=== PATIENT | female | born 1965 | race Caucasian/White ===

== ENCOUNTER 2017-08-28 20:30 | Outpatient (CLI) | payer BC | END 2017-08-28 20:31 | disposition home or self-care (01) | LOC: SLEEPLAB 20:30 | PROVIDERS: ATTEND Nurse Practitioner Family | DX: G47.33 Obstructive sleep apnea (adult) (pediatric) (principal); E66.9 Obesity, unspecified; I10 Essential (primary) hypertension; R51 Headache; R06.83 Snoring; G47.10 Hypersomnia, unspecified; G47.00 Insomnia, unspecified | CPT/HCPCS: 95810 ==

== ENCOUNTER 2018-02-09 15:27 | Outpatient (CLI) | payer BC ==
--- NOTE | 2018-02-09 16:17 | RAD ---
ABDOMEN 1 VIEW: Date: 02/09/18 HISTORY: Bilateral flank pain. COMPARISON: None. FINDINGS: No abnormal calcifications projecting over the renal shadows. Right upper quadrant surgical clips. No definite ureteral calculus. Mild narrowing of facet joints. No dilated loops of large or small bowel . Phleboliths in pelvis. IMPRESSION: No acute abnormality. POS: OFF
--- NOTE | 2018-02-09 16:18 | RAD ---
LUMBAR SPINE 3 VIEWS: Date: 02/09/18 HISTORY: Back pain. FINDINGS: Degenerative changes are present. No fracture, subluxation, or bony destruction is identified. IMPRESSION: Lumbar spondylosis. POS: [place]
== END 2018-02-09 15:28 | disposition home or self-care (01) ==
LOC: RAD-FRANK 15:27
PROVIDERS: ATTEND Nurse Practitioner Family
DX: M54.5 Low back pain (principal); R10.9 Unspecified abdominal pain; M47.896 Other spondylosis, lumbar region
CPT/HCPCS: 72100; 74018

== ENCOUNTER 2018-02-18 09:20 | Outpatient (CLI) | payer BC ==
[2018-02-18] MEDS ORDERED: Iopamidol 370 76% 100 ML VIAL ONE (11:33)
== END 2018-02-18 09:21 | disposition home or self-care (01) ==
LOC: BICCT 09:20
PROVIDERS: ATTEND Nurse Practitioner Family
DX: R10.9 Unspecified abdominal pain (principal); I86.8 Varicose veins of other specified sites; K57.30 Diverticulosis of large intestine without perforation or abscess without bleeding
CPT/HCPCS: 74177

== ENCOUNTER 2018-03-15 07:43 | Outpatient (CLI) | payer BC | END 2018-03-15 07:44 | disposition home or self-care (01) | LOC: BICMRI 07:43 | PROVIDERS: ATTEND Nurse Practitioner Family | DX: M25.552 Pain in left hip (principal); M25.551 Pain in right hip; M53.9 Dorsopathy, unspecified; M70.62 Trochanteric bursitis, left hip; M67.88 Other specified disorders of synovium and tendon, other site; M47.896 Other spondylosis, lumbar region | CPT/HCPCS: 72148 ==

== ENCOUNTER 2021-07-24 11:59 | Outpatient (CLI) | payer BC | END 2021-07-24 12:00 | disposition home or self-care (01) | LOC: BICRAD 11:59 | PROVIDERS: ATTEND Nurse Practitioner Family | DX: M46.1 Sacroiliitis, not elsewhere classified (principal); M47.816 Spondylosis without myelopathy or radiculopathy, lumbar region; M47.815 Spondylosis without myelopathy or radiculopathy, thoracolumbar region | CPT/HCPCS: 72100 ==

== ENCOUNTER 2021-08-07 08:56 | Outpatient (CLI) | payer BC | END 2021-08-07 08:57 | disposition home or self-care (01) | LOC: BICMRI 08:56 | PROVIDERS: ATTEND Nurse Practitioner Family | DX: M48.061 Spinal stenosis, lumbar region without neurogenic claudication (principal); M47.816 Spondylosis without myelopathy or radiculopathy, lumbar region | CPT/HCPCS: 72148 ==

== ENCOUNTER 2022-04-01 08:51 | Outpatient (CLI) | payer BC | END 2022-04-01 08:52 | disposition home or self-care (01) | LOC: BICMAMMO 08:51 | PROVIDERS: ATTEND Nurse Practitioner Family | DX: Z12.31 Encounter for screening mammogram for malignant neoplasm of breast (principal); Z80.3 Family history of malignant neoplasm of breast | CPT/HCPCS: 77063; 77067 ==

== ENCOUNTER 2022-05-27 15:16 | Inpatient (IN) | payer BC ==
[~2022-05-27 15:16] MED LIST: Iopamidol-370 76% 500 ML 1 ML ONE
[2022-05-27 17:36] LABS: #Eosinphils 0.2 thou/uL (0.0-0.7); #Monocytes 0.9 thou/uL (0.11-0.59); #Neutrophils 9.1 thou/uL (1.40-6.50); %Basophils 0.3 % (0.0-1.0); %Eosinophils 1.6 % (0.0-10.0); %Lymphocytes 16.2 % (21.0-51.0); %Monocytes 7.4 % (0.0-10.0); %Neutrophils 74.5 % (42.0-75.0); Hemoglobin 12.7 g/dL (12.0-16.0); Mean Corpuscular HGB CONC 32.7 g/dL (32.0-36.0); Mean Corpuscular Hemoglobin 30.2 pg (27.0-31.0); Mean Corpuscular Volume 92.5 fL (78.0-98.0); Mean Platelet Volume 7.4 fL (7.4-10.4); Platelet Count 237 thou/uL (130-400); RBC Distribution Width 11.8 % (11.5-14.5); Red Blood Cell (RBC) Count 4.21 mill/uL (4.20-5.40); White Blood Cell (WBC) Count 12.3 thou/uL (4.8-10.8)
[2022-05-27 17:47] LABS: PTT 28.7 sec (22.9-36.1)
[2022-05-27] MEDS ORDERED: Ondansetron PF 4 MG/2 ML Vial ONE (17:52)
[2022-05-27] MEDS ORDERED: Dicyclomine 20 MG/2 ML VIAL ONE (17:53)
[2022-05-27 17:58] LABS: ALT (SGPT) 12 U/L (8-55); AST (SGOT) 12 U/L (5-34); Albumin 4.3 g/dL (3.5-5.0); Alkaline Phosphatase 67 U/L (40-110); Anion Gap 13 mmol/L (10-20); BUN (Urea Nitrogen) 16 mg/dL (9.8-20.1); Bilirubin, Total 0.6 mg/dL (0.2-1.2); Calc. Creatinine Clearance 0 mL/min (70-130); Calcium 9.3 mg/dL (7.8-10.44); Carbon Dioxide 33 mmol/L (22-29); Chloride 97 mmol/L (98-107); Estimated GFR 86; Globulin 2.8 g/dL (2.4-3.5); Glucose 91 mg/dL (70-105); Potassium 3.1 mmol/L (3.5-5.1); Protein, Total 7.1 g/dL (6.0-8.3); Sodium 140 mmol/L (136-145)
[2022-05-27] MEDS ORDERED: Piperacillin/Tazobactam 3.375 GM VIAL ONE (21:46)
[2022-05-27] MEDS ORDERED: HYDROcodone/Acetaminophen 5/325 mg Tablet ONE (22:22)
[2022-05-27] MEDS ORDERED: Ondansetron ODT 4 MG TAB PO PRN (22:51)
[2022-05-27] MEDS ORDERED: Ondansetron PF 4 MG/2 ML Vial IVP PRN (22:51)
[2022-05-27] MEDS ORDERED: hydrALAZINE 20 MG/ML VIAL SLOW IVP PRN (22:51)
[2022-05-27] MEDS ORDERED: Electrolyte Replacement Protocol 1 EACH FS SCH (23:00)
[2022-05-27 23:53] VITALS: BMI 25.9
[2022-05-27] MEDS ORDERED: Potassium Chloride 20 MEQ in Premix Bag 1 BAG IVPB SCH (23:59)
[2022-05-27] MEDS ORDERED: Sodium Chloride 0.9% 1,000 ML IV SCH (23:59)
[2022-05-28] MEDS ORDERED: Gabapentin 100 MG CAP PO SCH (01:30)
[2022-05-28 01:43] LABS: SARS-CoV-2 NAA Rapid Test Not Detected (NotDetected)
[2022-05-28] MEDS: Melatonin 3 MG TAB PO PRN (01:46)
[2022-05-28] MEDS: Piperacillin/Tazobactam 3.375 GM in Sodium Chloride 0.9% 100 ML IVPB SCH ×3 (03:32→18:37)
[2022-05-28] MEDS: Acetaminophen/Codeine 30-300mg Tablet PO PRN ×3 (04:28→19:41)
[2022-05-28 06:02] LABS: #Eosinphils 0.3 thou/uL (0.0-0.7); #Monocytes 0.9 thou/uL (0.11-0.59); #Neutrophils 5.8 thou/uL (1.40-6.50); %Basophils 0.5 % (0.0-1.0); %Eosinophils 3.1 % (0.0-10.0); %Lymphocytes 22.1 % (21.0-51.0); %Monocytes 9.6 % (0.0-10.0); %Neutrophils 64.8 % (42.0-75.0); Hemoglobin 10.7 g/dL (12.0-16.0); Mean Corpuscular HGB CONC 33.3 g/dL (32.0-36.0); Mean Corpuscular Hemoglobin 30.7 pg (27.0-31.0); Mean Corpuscular Volume 92.3 fL (78.0-98.0); Mean Platelet Volume 7.4 fL (7.4-10.4); Platelet Count 198 thou/uL (130-400); RBC Distribution Width 11.7 % (11.5-14.5); Red Blood Cell (RBC) Count 3.47 mill/uL (4.20-5.40)
[2022-05-28 06:33] LABS: Anion Gap 11 mmol/L (10-20); BUN (Urea Nitrogen) 12 mg/dL (9.8-20.1); Calc. Creatinine Clearance 89 mL/min (70-130); Calcium 8.4 mg/dL (7.8-10.44); Carbon Dioxide 27 mmol/L (22-29); Chloride 104 mmol/L (98-107); Estimated GFR 90; Glucose 103 mg/dL (70-105); Magnesium 2.2 mg/dL (1.6-2.6); Potassium 3.8 mmol/L (3.5-5.1); Sodium 138 mmol/L (136-145)
[2022-05-28] MEDS ORDERED: Pantoprazole 40 MG VIAL IVP SCH (09:00)
[2022-05-28] MEDS ORDERED: Acetaminophen/Codeine 30-300mg Tablet PO PRN ×2 (13:06→13:07)
[2022-05-28] MEDS: tiZANidine HCl 4 MG TAB PO PRN (19:41)
[2022-05-29] MEDS: Melatonin 3 MG TAB PO PRN (00:55)
[2022-05-29] MEDS: Piperacillin/Tazobactam 3.375 GM in Sodium Chloride 0.9% 100 ML IVPB SCH ×3 (02:09→18:24)
[2022-05-29 06:51] LABS: #Basophils 0.1 thou/uL (0.0-0.2); #Eosinphils 0.2 thou/uL (0.0-0.7); #Monocytes 0.7 thou/uL (0.11-0.59); #Neutrophils 4.5 thou/uL (1.40-6.50); %Basophils 0.7 % (0.0-1.0); %Eosinophils 3.2 % (0.0-10.0); %Lymphocytes 26.3 % (21.0-51.0); %Monocytes 9.7 % (0.0-10.0); %Neutrophils 60.1 % (42.0-75.0); Hemoglobin 9.8 g/dL (12.0-16.0); Mean Corpuscular HGB CONC 32.3 g/dL (32.0-36.0); Mean Corpuscular Hemoglobin 30.2 pg (27.0-31.0); Mean Corpuscular Volume 93.4 fL (78.0-98.0); Mean Platelet Volume 7.6 fL (7.4-10.4); Platelet Count 191 thou/uL (130-400); RBC Distribution Width 11.7 % (11.5-14.5); Red Blood Cell (RBC) Count 3.25 mill/uL (4.20-5.40); White Blood Cell (WBC) Count 7.5 thou/uL (4.8-10.8)
[2022-05-29 07:12] LABS: Anion Gap 11 mmol/L (10-20); BUN (Urea Nitrogen) 9 mg/dL (9.8-20.1); Calc. Creatinine Clearance 89 mL/min (70-130); Calcium 7.7 mg/dL (7.8-10.44); Carbon Dioxide 27 mmol/L (22-29); Chloride 107 mmol/L (98-107); Estimated GFR 90; Glucose 90 mg/dL (70-105); Potassium 3.7 mmol/L (3.5-5.1); Sodium 141 mmol/L (136-145)
[2022-05-29] MEDS ORDERED: GoLYTELY 4,000 ml Bottle PO SCH (10:15)
[2022-05-29] MEDS ORDERED: Dicyclomine 20 MG TAB PO PRN (12:32)
[2022-05-29] MEDS: tiZANidine HCl 4 MG TAB PO PRN ×2 (15:22→23:34)
[2022-05-30] MEDS: Piperacillin/Tazobactam 3.375 GM in Sodium Chloride 0.9% 100 ML IVPB SCH ×2 (02:24→11:18)
[2022-05-30] MEDS ORDERED: PROPOFOL 200 MG/20 ML VIAL ONE (10:09)
[2022-05-30] MEDS ORDERED: Lidocaine 1% PF 5 ML VIAL ONE (10:09)
[2022-05-30] MEDS ORDERED: Fentanyl 100 MCG/2 ML VIAL ONE (10:57)
[2022-05-30 12:37] VITALS: BP 155/93; TEMP 96.8
[2022-05-30 15:21] LABS: Campy jejuni + coli by PCR Negative (Negative); STEC Shiga Toxin 1+2 Negative (Negative); Salmonella spp. by PCR Negative (Negative); Shigella spp + EIEC by PCR Negative (Negative)
== END 2022-05-30 14:29 | disposition home or self-care (01) | DRG 395 ==
LOC: ERS 15:16 → SURG B 22:12
PROVIDERS: ADMIT Internal Medicine; ATTEND Internal Medicine
PROC: 0DBE8ZX Excision of Large Intestine, Via Natural or Artificial Opening Endoscopic, Diagnostic (ICD-10-PCS; principal; 2022-05-30)
DX: K55.9 Vascular disorder of intestine, unspecified (principal); Z20.822 Contact with and (suspected) exposure to COVID-19; K64.4 Residual hemorrhoidal skin tags; K64.8 Other hemorrhoids; K57.30 Diverticulosis of large intestine without perforation or abscess without bleeding; G89.29 Other chronic pain; M54.50 Low back pain, unspecified; M54.30 Sciatica, unspecified side; I10 Essential (primary) hypertension; E87.6 Hypokalemia; Z80.3 Family history of malignant neoplasm of breast; Z79.899 Other long term (current) drug therapy
CPT/HCPCS: 36415; 74177; 80048; 80053; 83630; 83735; 85025; 85610; 85730; 86850; 86900; 86901; 87324; 87328; 87329; 87449; 87505; 88305; 94760; 96361; 96365; 96372; 96375; C9113; J0500; J2405; J2543; J2704; J3010; J3480; J3490; J7050; Q0162; Q9967; U0002